=== PATIENT | female | born 1945 | race Caucasian/White ===

== ENCOUNTER 2020-03-17 13:15 | Emergency (ER) | payer BC ==
[~2020-03-17] VITALS: Ht 172.7 cm; Wt 74.8 kg
[~2020-03-17 13:15] MED LIST: ASPI-543 PO
[2020-03-17 13:29] VITALS: BP 151/78
== END 2020-03-17 15:31 | disposition home or self-care (01) ==
LOC: ER 13:15
DX: I10 Essential (primary) hypertension (principal); Z79.82 Long term (current) use of aspirin; Z90.710 Acquired absence of both cervix and uterus; S83.92XA Sprain of unspecified site of left knee, initial encounter; W22.8XXA Striking against or struck by other objects, initial encounter; Y93.89 Activity, other specified; Y92.89 Other specified places as the place of occurrence of the external cause; Y99.8 Other external cause status
CPT/HCPCS: 29505; 73560

== ENCOUNTER 2021-01-12 08:40 | Inpatient (IN) | payer BC ==
[~2021-01-12] VITALS: Ht 172.7 cm; Wt 73.8 kg
[2021-01-12 09:54] LABS: Basophils # (auto) 0 10 ^3/uL (0-0.2); Basophils % (auto) 0.6 % (0.0-2.0); Eosinophils # (auto) 0.2 10 ^3/uL (0-0.8); Eosinophils % (auto) 2.7 % (0.0-7.0); Hematocrit 40.7 % (36.0-46.0); Hemoglobin 14.5 g/dL (12.2-16.2); Lymphocytes % (auto) 27.9 % (10.0-50.0); Mean Corpuscular Hemoglobin 29.5 pg (28.0-32.0); Mean Corpuscular Hgb Conc. 35.6 g/dL (32.0-36.0); Mean Corpuscular Volume 82.9 fL (80.0-100.0); Monocytes # (auto) 0.6 10 ^3/uL (0-1.3); Monocytes % (auto) 8.6 % (0.0-12.0); Neutrophils # (auto) 4.3 10 ^3/uL (1.6-8.6); Neutrophils % (auto) 60.2 % (37.0-80.0); Nucleated Red Blood Cells % 0.2 %; Platelet Count (auto) 194 10^3/uL (140-450); Red Cell Distribution Width 13.4 % (11.8-14.3); White Blood Cell 7.2 10^3/uL (4.4-10.8)
[2021-01-12 10:07] LABS: Albumin 3.9 g/dL (3.4-5.0); Calcium 8.8 mg/dL (8.5-10.1); Potassium 3.7 mmol/L (3.5-5.1)
[2021-01-12 10:12] LABS: BUN/Creatinine Ratio 19.5; Bilirubin, Total 0.6 mg/dL (0.2-1.0)
[2021-01-12] MEDS ORDERED: SODIUM CHLORIDE 0.9% 500 ML IV ONE (10:30)
[2021-01-12 12:07] LABS: Urine Bacteria NONE SEEN /hpf (None Seen); Urine Blood Negative /uL (Negative); Urine Mucus FEW (None Seen); Urine Specific Gravity 1.019 (1.001-1.035); Urine WBC 24 /hpf (0 - 5)
[2021-01-12] MEDS ORDERED: NITROGLYCERIN 0.4 MG SL TAB SL PRN (12:30)
[2021-01-12] MEDS ORDERED: MORPHINE SULF INJ 2 MG/ML SYRINGE 1ML IV PRN (12:30)
[2021-01-12] MEDS ORDERED: ACETAMINOPHEN 500 MG TAB PO PRN (12:30)
[2021-01-12] MEDS ORDERED: LACTULOSE 20Gm/30ML SOLN PO PRN (12:30)
[2021-01-12] MEDS ORDERED: ONDANSETRON HCL 4 MG/2 ML VIAL IV PRN ×2 (12:30)
[2021-01-12] MEDS ORDERED: cefTRIAXone 1GM/50ML D5W 50 ML IV ONE (12:30)
[2021-01-12] MEDS ORDERED: LABETALOL HCL 5 MG/ML ML 20ML VIAL IV PRN (12:30)
[2021-01-12] MEDS ORDERED: ASPirin 81 mg TAB PO ONE (12:45)
[2021-01-12] MEDS: SODIUM CHLORIDE 0.9% 1,000 ML IV SCH (13:51)
[2021-01-12 14:57] LABS: CRP High Sensitivity 0.24 mg/dL (< 0.3)
[2021-01-12 15:01] LABS: Creatine Kinase IFCC 100 U/L (26-192)
[2021-01-12 16:25] VITALS: BP 140/98
[2021-01-12 17:00] VITALS: BP 140/98
[2021-01-12 20:00] VITALS: BP 143/87
[2021-01-12] MEDS: traMADol HCL 50 MG TAB PO PRN (20:55)
[2021-01-12] MEDS: FAMOTIDINE 20 MG TAB PO SCH ×2 (21:31→22:00)
[2021-01-12] MEDS: ENOXAPARIN SOD 80 MG/0.8ML SYRINGE SC SCH (21:31)
[2021-01-12] MEDS: ATORVASTATIN 20 MG TAB PO SCH ×2 (21:31→22:00)
[2021-01-12] MEDS: METOPROLOL TARTRATE 25 MG TAB PO SCH (21:43)
[2021-01-12 22:00] VITALS: BP 143/87
[2021-01-13] VITALS (7 sets, daily range): BP systolic 116–163; BP diastolic 62–89
[2021-01-13] MEDS: SODIUM CHLORIDE 0.9% 1,000 ML IV SCH ×2 (03:00→09:00)
[2021-01-13] MEDS: cefTRIAXone 1GM/50ML D5W 50 ML IV SCH (09:09)
[2021-01-13] MEDS: ENOXAPARIN SOD 80 MG/0.8ML SYRINGE SC SCH (09:18)
[2021-01-13] MEDS: FAMOTIDINE 20 MG TAB PO SCH ×2 (09:18→21:43)
[2021-01-13] MEDS: METOPROLOL TARTRATE 25 MG TAB PO SCH ×2 (09:18→21:42)
[2021-01-13] MEDS ORDERED: ASPirin 81 mg TAB PO SCH (10:00)
[2021-01-13 11:34] LABS: Cholesterol 171 mg/dL (< 200)
[2021-01-13 11:37] LABS: HDL Cholesterol 47 mg/dL (40-59); LDL Cholesterol 105 mg/dL (< 100); Triglycerides 121 mg/dL (< 150)
[2021-01-13] MEDS: cloNIDine HCL 0.1 MG TAB PO PRN (17:06)
[2021-01-13] MEDS ORDERED: LORazepam 2MG/ML-1ML VIAL IV PRN (17:30)
[2021-01-13] MEDS ORDERED: LORazepam 0.5 MG TAB PO PRN (17:45)
[2021-01-13] MEDS: ATORVASTATIN 20 MG TAB PO SCH (21:43)
[2021-01-13] MEDS: traMADol HCL 50 MG TAB PO PRN (21:44)
[2021-01-14] MEDS: SODIUM CHLORIDE 0.9% 1,000 ML IV SCH ×3 (02:27→19:29)
[2021-01-14 05:21] VITALS: BP 126/82
[2021-01-14 08:00] VITALS: BP 147/87
[2021-01-14] MEDS: cefTRIAXone 1GM/50ML D5W 50 ML IV SCH (09:47)
[2021-01-14] MEDS: METOPROLOL TARTRATE 25 MG TAB PO SCH ×2 (09:48→22:00)
[2021-01-14] MEDS: FAMOTIDINE 20 MG TAB PO SCH ×2 (09:48→22:00)
[2021-01-14 12:00] VITALS: BP 146/77
[2021-01-14 16:00] VITALS: BP 159/82
[2021-01-14] MEDS ORDERED: RIVAROXABAN 20 MG TAB PO SCH (17:00)
[2021-01-14 20:00] VITALS: BP 153/111
[2021-01-14] MEDS: cloNIDine HCL 0.1 MG TAB PO PRN (20:58)
[2021-01-14 21:49] VITALS: BP 153/111
[2021-01-14] MEDS: ATORVASTATIN 20 MG TAB PO SCH (22:00)
[2021-01-15 09:00] VITALS: BP 159/105
[2021-01-15] MEDS: cefTRIAXone 1GM/50ML D5W 50 ML IV SCH (09:00)
[2021-01-15] MEDS: METOPROLOL TARTRATE 25 MG TAB PO SCH (09:24)
[2021-01-15] MEDS: cloNIDine HCL 0.1 MG TAB PO PRN (09:25)
== END 2021-01-15 11:20 | disposition home or self-care (01) | DRG 92 ==
LOC: ER 08:40 → TELE 12:21 → TELE-EAST 15:09
PROVIDERS: ADMIT Internal Medicine; ATTEND Family Medicine
DX: R47.01 Aphasia (principal); N39.0 Urinary tract infection, site not specified; Z20.822 Contact with and (suspected) exposure to COVID-19; I10 Essential (primary) hypertension; M47.812 Spondylosis without myelopathy or radiculopathy, cervical region; I48.0 Paroxysmal atrial fibrillation; F41.9 Anxiety disorder, unspecified; G89.29 Other chronic pain; M19.90 Unspecified osteoarthritis, unspecified site; Z85.828 Personal history of other malignant neoplasm of skin; Z88.8 Allergy status to other drugs, medicaments and biological substances; Z90.710 Acquired absence of both cervix and uterus; Z83.3 Family history of diabetes mellitus; Z79.82 Long term (current) use of aspirin; Z86.73 Personal history of transient ischemic attack (TIA), and cerebral infarction without residual deficits; Z82.49 Family history of ischemic heart disease and other diseases of the circulatory system; Z79.899 Other long term (current) drug therapy
CPT/HCPCS: 36415; 70450; 70551; 71045; 80053; 80061; 81001; 82550; 84443; 84484; 85025; 85049; 85379; 85652; 86141; 87086; 87426; 93005; 93306; 93886; 95819; 96361; 96365; G0378; J0696